=== PATIENT | female | born 1985 | race Caucasian/White ===

== ENCOUNTER 2023-08-06 14:06 | Outpatient (RCR) | payer OTHER, SELFPAY | END 2023-08-06 23:59 | disposition home or self-care (01) | LOC: RPT 14:06 | PROVIDERS: ATTENDING PHYSICIAN Urology; PRIMARYCARE PHYSICIAN Family Medicine | DX: R35.0 Frequency of micturition (principal); M62.89 Other specified disorders of muscle; Z73.6 Limitation of activities due to disability; R10.2 Pelvic and perineal pain; R27.8 Other lack of coordination; M62.81 Muscle weakness (generalized); R15.2 Fecal urgency | CPT/HCPCS: 97110; 97530 ==

== ENCOUNTER 2023-08-30 07:28 | Outpatient (RCR) | payer OTHER, SELFPAY | END 2023-08-30 23:59 | disposition home or self-care (01) | LOC: RPT 07:28 | PROVIDERS: ATTENDING PHYSICIAN Urology; PRIMARYCARE PHYSICIAN Family Medicine | DX: R35.0 Frequency of micturition (principal); M62.89 Other specified disorders of muscle; Z73.6 Limitation of activities due to disability; R10.2 Pelvic and perineal pain; R27.8 Other lack of coordination; M62.81 Muscle weakness (generalized); R15.2 Fecal urgency | CPT/HCPCS: 97110; 97530 ==

== ENCOUNTER 2023-09-27 14:28 | Outpatient (RCR) | payer OTHER, SELFPAY | END 2023-09-27 23:59 | disposition home or self-care (01) | LOC: RPT 14:28 | PROVIDERS: ATTENDING PHYSICIAN Urology; PRIMARYCARE PHYSICIAN Family Medicine | DX: R35.0 Frequency of micturition (principal); M62.89 Other specified disorders of muscle; Z73.6 Limitation of activities due to disability; R10.2 Pelvic and perineal pain; R27.8 Other lack of coordination; M62.81 Muscle weakness (generalized); R15.2 Fecal urgency | CPT/HCPCS: 97110; 97140; 97530 ==

== ENCOUNTER → 2023-10-22 14:00 | Outpatient (REF) | payer OTHER, SELFPAY | LOC: WDC 14:00 | PROVIDERS: ATTENDING PHYSICIAN Surgery | DX: R92.8 Other abnormal and inconclusive findings on diagnostic imaging of breast (principal) | CPT/HCPCS: 76642 ==

== ENCOUNTER 2023-10-26 15:29 | Outpatient (RCR) | payer OTHER, SELFPAY | END 2023-10-26 23:59 | disposition home or self-care (01) | LOC: RPT 15:29 | PROVIDERS: ATTENDING PHYSICIAN Urology; PRIMARYCARE PHYSICIAN Family Medicine | DX: R35.0 Frequency of micturition (principal); M62.89 Other specified disorders of muscle; Z73.6 Limitation of activities due to disability; R10.2 Pelvic and perineal pain; R27.8 Other lack of coordination; M62.81 Muscle weakness (generalized); R15.2 Fecal urgency | CPT/HCPCS: 97110; 97112; 97140; 97530 ==

== ENCOUNTER 2023-12-07 06:32 | Outpatient (RCR) | payer OTHER, SELFPAY | END 2023-12-07 23:59 | disposition home or self-care (01) | LOC: RPT 06:32 | PROVIDERS: ATTENDING PHYSICIAN Urology; PRIMARYCARE PHYSICIAN Family Medicine | DX: R35.0 Frequency of micturition (principal); M62.89 Other specified disorders of muscle; Z73.6 Limitation of activities due to disability; R10.2 Pelvic and perineal pain; R27.8 Other lack of coordination; M62.81 Muscle weakness (generalized); R15.2 Fecal urgency | CPT/HCPCS: 97110; 97140; 97530 ==

== ENCOUNTER 2023-12-28 06:07 | Outpatient (RCR) | payer OTHER, SELFPAY | END 2023-12-28 23:59 | disposition home or self-care (01) | LOC: RPT 06:07 | PROVIDERS: ATTENDING PHYSICIAN Urology; PRIMARYCARE PHYSICIAN Family Medicine | DX: R35.0 Frequency of micturition (principal); M62.89 Other specified disorders of muscle; Z73.6 Limitation of activities due to disability; R10.2 Pelvic and perineal pain; R27.8 Other lack of coordination; M62.81 Muscle weakness (generalized); R15.2 Fecal urgency | CPT/HCPCS: 97110; 97530 ==

== ENCOUNTER 2024-02-01 08:18 | Outpatient (RCR) | payer OTHER, SELFPAY | END 2024-02-01 23:59 | disposition home or self-care (01) | LOC: RPT 08:18 | PROVIDERS: ATTENDING PHYSICIAN Urology; PRIMARYCARE PHYSICIAN Family Medicine | DX: R35.0 Frequency of micturition (principal); M62.89 Other specified disorders of muscle; Z73.6 Limitation of activities due to disability; R10.2 Pelvic and perineal pain; R27.8 Other lack of coordination; M62.81 Muscle weakness (generalized); R15.2 Fecal urgency | CPT/HCPCS: 97110; 97530 ==

== ENCOUNTER 2024-03-07 08:02 | Outpatient (RCR) | payer OTHER, SELFPAY | END 2024-03-07 23:59 | disposition home or self-care (01) | LOC: RPT 08:02 | PROVIDERS: ATTENDING PHYSICIAN Urology; PRIMARYCARE PHYSICIAN Family Medicine | DX: R35.0 Frequency of micturition (principal); M62.89 Other specified disorders of muscle; Z73.6 Limitation of activities due to disability; R10.2 Pelvic and perineal pain; R27.8 Other lack of coordination; M62.81 Muscle weakness (generalized); R15.2 Fecal urgency | CPT/HCPCS: 97110; 97530 ==

== ENCOUNTER 2024-03-21 08:06 | Outpatient (RCR) | payer OTHER, SELFPAY | END 2024-03-21 23:59 | disposition home or self-care (01) | LOC: RPT 08:06 | PROVIDERS: ATTENDING PHYSICIAN Urology; PRIMARYCARE PHYSICIAN Family Medicine | DX: R35.0 Frequency of micturition (principal); M62.89 Other specified disorders of muscle; Z73.6 Limitation of activities due to disability; R10.2 Pelvic and perineal pain; R27.8 Other lack of coordination; M62.81 Muscle weakness (generalized); R15.2 Fecal urgency | CPT/HCPCS: 97110; 97530 ==

== ENCOUNTER 2024-05-02 06:44 | Outpatient (RCR) | payer OTHER, SELFPAY | END 2024-05-02 23:59 | disposition home or self-care (01) | LOC: RPT 06:44 | PROVIDERS: ATTENDING PHYSICIAN Urology; PRIMARYCARE PHYSICIAN Family Medicine | DX: R35.0 Frequency of micturition (principal); M62.89 Other specified disorders of muscle; Z73.6 Limitation of activities due to disability; R10.2 Pelvic and perineal pain; R27.8 Other lack of coordination; M62.81 Muscle weakness (generalized); R15.2 Fecal urgency | CPT/HCPCS: 97110; 97530 ==

== ENCOUNTER 2024-05-30 06:39 | Outpatient (RCR) | payer OTHER, SELFPAY | END 2024-05-30 23:59 | disposition home or self-care (01) | LOC: RPT 06:39 | PROVIDERS: ATTENDING PHYSICIAN Urology; PRIMARYCARE PHYSICIAN Family Medicine | DX: R35.0 Frequency of micturition (principal); M62.89 Other specified disorders of muscle; Z73.6 Limitation of activities due to disability; R10.2 Pelvic and perineal pain; R27.8 Other lack of coordination; M62.81 Muscle weakness (generalized); R15.2 Fecal urgency | CPT/HCPCS: 97110; 97530 ==

== ENCOUNTER 2024-06-27 07:14 | Outpatient (RCR) | payer OTHER, SELFPAY | END 2024-06-27 23:59 | disposition home or self-care (01) | LOC: RPT 07:14 | PROVIDERS: ATTENDING PHYSICIAN Urology; PRIMARYCARE PHYSICIAN Family Medicine | DX: R35.0 Frequency of micturition (principal); M62.89 Other specified disorders of muscle; Z73.6 Limitation of activities due to disability; R10.2 Pelvic and perineal pain; R27.8 Other lack of coordination; M62.81 Muscle weakness (generalized); R15.2 Fecal urgency | CPT/HCPCS: 97110; 97530 ==

== ENCOUNTER 2024-08-08 06:41 | Outpatient (RCR) | payer OTHER, SELFPAY | END 2024-08-08 23:59 | disposition home or self-care (01) | LOC: RPT 06:41 | PROVIDERS: ATTENDING PHYSICIAN Urology; PRIMARYCARE PHYSICIAN Family Medicine | DX: R35.0 Frequency of micturition (principal); M62.89 Other specified disorders of muscle; Z73.6 Limitation of activities due to disability; R10.2 Pelvic and perineal pain; R27.8 Other lack of coordination; M62.81 Muscle weakness (generalized); R15.2 Fecal urgency | CPT/HCPCS: 97110; 97530 ==

== ENCOUNTER → 2025-04-17 14:02 | Outpatient (REF) | payer OTHER, SELFPAY | LOC: WDC 14:02 | PROVIDERS: ATTENDING PHYSICIAN Nurse Practitioner Adult Health; FAMILY PHYSICIAN Family Medicine | DX: R92.8 Other abnormal and inconclusive findings on diagnostic imaging of breast (principal) | CPT/HCPCS: 76642 ==